=== PATIENT | male | born 1970 | race Caucasian/White ===

== ENCOUNTER 2022-04-22 13:23 | Outpatient (CLI) | payer BC, SELFPAY ==
[2022-04-22 22:16] LABS: Albumin* 4.7 g/dL (3.3-5.0); Chloride* 104 mmol/L (96-114); Sodium* 139 mmol/L (135-149)
[2022-04-22 22:17] LABS: Potassium* 4.3 mmol/L (3.6-5.1)
[2022-04-22 22:19] LABS: Alkaline Phosphatase* 75 U/L (40-150); Aspartate Amino Transferase* 91 U/L (12-35); Bilirubin Total* 1.4 mg/dL (0.1-1.5); Blood Urea Nitrogen* 17 mg/dL (7-30); Carbon Dioxide* 22 mmol/L (20-32); Cholesterol* 258 mg/dL (90-199); Creatinine* 0.9 mg/dL (0.5-1.5); Estimated Glomerular Filt Rate 102 ml/min; Glucose* 131 mg/dL (60-115)
[2022-04-22 22:20] LABS: Alanine Aminotransferase* 108 U/L (4-50); Calcium* 9.8 mg/dL (8.4-10.6); HDL Cholesterol* 59 mg/dL (>=40); LDL Cholesterol Calculated 123 mg/dL (<100); Triglycerides* 382 mg/dL (40-149); Uric Acid* 6.6 mg/dL (2.2-8.4)
== END 2022-04-22 13:24 | disposition home or self-care (01) ==
PROVIDERS: PCP Physician Assistant Medical; Visit Provider Physician Assistant Medical
DX: E78.5 Hyperlipidemia, unspecified (principal); I10 Essential (primary) hypertension; K76.0 Fatty (change of) liver, not elsewhere classified; M10.9 Gout, unspecified
CPT/HCPCS: 80053; 80061; 84550

== ENCOUNTER 2022-07-19 08:44 | Outpatient (CLI) | payer BC, SELFPAY | END 2022-07-19 08:45 | disposition home or self-care (01) | LOC: OP CLINIC 08:44 | PROVIDERS: PCP Physician Assistant Medical; Visit Provider Surgery | DX: Z12.11 Encounter for screening for malignant neoplasm of colon (principal); K57.30 Diverticulosis of large intestine without perforation or abscess without bleeding | CPT/HCPCS: 45378; 99153; J2250; J3010 ==

== ENCOUNTER 2022-07-28 07:40 | Outpatient (CLI) | payer BC, SELFPAY | END 2022-07-28 07:41 | disposition home or self-care (01) | LOC: NFLDREF 07-29 10:42 | PROVIDERS: PCP Physician Assistant Medical; Referring Provider Physician Assistant Medical; Visit Provider Physician Assistant Medical | DX: E78.2 Mixed hyperlipidemia (principal); R73.03 Prediabetes | CPT/HCPCS: 80061; 84450; 84460 ==

== ENCOUNTER 2022-09-08 15:12 | Outpatient (CLI) | payer BC, SELFPAY | END 2022-09-08 15:13 | disposition home or self-care (01) | LOC: NFLDREF 09-11 16:41 | PROVIDERS: PCP Physician Assistant Medical; Referring Provider Physician Assistant Medical; Visit Provider Physician Assistant Medical | DX: K76.0 Fatty (change of) liver, not elsewhere classified (principal); R79.89 Other specified abnormal findings of blood chemistry | CPT/HCPCS: 84450; 84460 ==